=== PATIENT | female | born 1955 | race Caucasian/White ===

== ENCOUNTER → 2018-01-24 | Outpatient (CLI) | payer OTHER ==
[~2018-01-24] MED LIST: ACIDOPHILUS1 EAC4 PO; ALLEGRA ALLERG180 MG PO; CIPRO500 MG PO; ESTRADIOL 1 MG T1 M1 PO; FLAGYL500 MG PO; LASIX 40 MG TAB40 M1 PO; MOBIC15 MG PO; OMEPRAZOLE40 MG PO; TIROSINT50 MCG PO; TRANSDERM-SCOP1 EACH TRANSDERM; TYLENOL325 MG PO; XANAX 0.5 MG0.5 MG PO; ZIAC 5-6.25 MG1 EACH PO
== END ==
LOC: M.RAD 16:51
DX: M47.892 Other spondylosis, cervical region (principal); M25.512 Pain in left shoulder; G89.29 Other chronic pain

== ENCOUNTER 2018-06-04 08:22 | Inpatient (IN) | payer OTHER, MEDICARE ==
[~2018-06-04] VITALS: Ht 172.7 cm; Wt 74.3 kg
[2018-06-04 08:29] VITALS: BP 134/73
[2018-06-04 08:55] LABS: ABSOLUTE BASOPHILS 0.1 thou/uL (0.0-0.2); ABSOLUTE EOSINOPHILS 0.3 thou/uL (0.0-0.7); ABSOLUTE LYMPHOCYTES 1.9 thou/uL (0.8-5.3); ABSOLUTE MONOCYTES 0.8 thou/uL (0.0-1.2); ABSOLUTE NEUTROPHILS 6.9 thou/uL (1.6-8.1); BASOPHILS 0.6 %; EOSINOPHILS 2.7 %; HEMATOCRIT 36.8 % (37.0-47.0); HEMOGLOBIN 12.5 gm/dL (12.0-15.0); LYMPHOCYTES 18.7 %; MCH 30.3 pg (26.0-34.0); MCHC 33.9 g/dL (28.0-37.0); MCV 89.4 fL (80.0-100.0); MONOCYTES 8.4 %; MPV 7.9 fl. (7.2-11.1); NUCLEATED RBCS 0 /100WBC; PLATELET COUNT* 336 thou/uL (150-400); POLYS 69.6 %; RBC 4.12 mil/uL (4.20-5.00); RDW-CV 13.2 % (10.5-14.5)
[2018-06-04 09:00] LABS: URINE BLOOD 2+ (Negative); URINE CLARITY CLEAR; URINE COLOR YELLOW; URINE GLUCOSE-RANDOM NEGATIVE (Negative); URINE KETONES TRACE (Negative); URINE LEUKOCYTES-REFLEX TRACE (Negative); URINE NITRITE-REFLEX NEGATIVE (Negative); URINE PROTEIN 2+ (Negative); URINE SPECIFIC GRAVITY 1.025 (1.005-1.030)
[2018-06-04 09:06] LABS: ANION GAP 7 mmol/L (7-16); BUN 10 mg/dL (7-18); CALCIUM 8.3 mg/dL (8.5-10.1); CHLORIDE 99 mmol/L (98-107); CO2 30 mmol/L (21-32); CREATININE 1.2 mg/dL (0.6-1.3); GLUCOSE 110 mg/dL (70-99); SODIUM 136 mmol/L (136-145)
[2018-06-04 09:14] LABS: ICTOTEST (BILI CONFIRMATORY) Negative (Negative); URINE BILIRUBIN 1+ (Negative)
[2018-06-04 09:15] LABS: CASTS None Seen /LPF (None Seen); CRYSTALS None Seen /LPF (None Seen); SQUAMOUS >10 Many /LPF (0-3); URINE WBC-REFLEX 0-5 Rare /HPF (0-5)
[2018-06-04 09:16] LABS: BACTERIA-REFLEX 1-9 Few /HPF (None Seen); URINE RBC None Seen /HPF (0-2)
[2018-06-04 09:18] LABS: ALBUMIN 2.9 g/dL (3.4-5.0); ALKALINE PHOSPHATASE 90 U/L (46-116); LIPASE 83 U/L (73-393); SGOT 16 U/L (15-37); SGPT 22 U/L (30-65); TOTAL BILIRUBIN 0.2 mg/dL (<0.1-1.0); TOTAL PROTEIN 6.9 g/dL (6.4-8.2); TROPONIN-I LEVEL <0.06 ng/mL (<0.06)
[2018-06-04] MEDS ORDERED: TIROSINT50 MCG PO (09:21)
[2018-06-04] MEDS ORDERED: ZIAC 5-6.25 MG1 EACH PO (09:21)
[2018-06-04] MEDS ORDERED: ESTRADIOL 1 MG T1 M1 PO (09:21)
[2018-06-04 11:33] VITALS: BP 128/66
[2018-06-04 11:45] VITALS: BP 131/66
[2018-06-04] MEDS ORDERED: MOBIC15 MG PO (13:29)
[2018-06-04] MEDS ORDERED: OMEPRAZOLE40 MG PO (13:30)
[2018-06-04] MEDS ORDERED: XANAX 0.5 MG0.5 MG PO (13:32)
[2018-06-04] MEDS ORDERED: ALLEGRA ALLERG180 MG PO (13:32)
[2018-06-04] MEDS ORDERED: TYLENOL325 MG PO (13:33)
--- NOTE | 2018-06-04 14:55 | 2DMMODE ---
[place] [address] 2 D/M-MODE ECHOCARDIOGRAM Name: BOAZ JIMÉNEZ Room: [address] [place] .R.#: [id number] Admission: 06/04/18 Attend Phys: Kathi Lopez, Discharge: Date of : 51 Date of Service: 06/04/18 1455 Report #: [id number] THIS REPORT FOR: //name// APPROVED REPORT Study performed: 06/04/2018 13:37:52 EXAM: Comprehensive 2D, Doppler, and color-flow Echocardiogram Patient Location: Bedside BSA: 1.13 HR: 77 bpm BP: 128/66 mmHg Other Information Study Quality: Good Indications Chest Pain 2D Dimensions LVEF(%): 74.17 (>50%) IVSd: 9.48 (7-11mm) LVOT Diam: 18.49 (18-24mm) LVDd: 39.08 mm PWd: 8.37 (7-11mm) Ascending Ao: 26.38 (22-36mm) LVDs: 22.48 (25-40mm) Aortic Root: 21.51 mm Abrams's LVEF: 74.17 % Volumes Left Atrial Volume (Systole) LA ESV Index: 29.30 mL/m2 Aortic Valve AoV Peak Rigoberto.: 1.48 m/s AO Peak Gr.: 8.75 mmHg LVOT Max P.17 mmHg AO Mean Gr.: 4.95 mmHg LVOT Mean P.93 mmHg LVOT Max V: 1.24 m/s AO V2 VTI: 29.52 cm LVOT Mean V: 0.79 m/s KANNAN (VTI): 2.22 cm2 LVOT V1 VTI: 24.45 cm Mitral Valve E/A Ratio: 1.16 MV Decel. Time: 213.41 ms MV E Max Rigoberto.: 1.06 m/[place] [address] 2 D/M-MODE ECHOCARDIOGRAM Name: BOAZ JIMÉNEZ Room: [address] IN [facility]#: [id number] Admission: 06/04/18 Attend Phys: Kathi Lopez, Discharge: Date of : 51 Date of Service: 06/04/18 1455 Report #: [id number] MV PHT: 61.89 ms MVA (PHT): 3.55 cm2 TDI E/Lateral E': 7.57 E/Medial E': 8.15 Medial E' Rigoberto.: 0.13 m/s Lateral E' Rigoberto.: 0.14 m/s Pulmonary Valve PV Peak Rigoberto.: 1.28 m/s PV Peak Gr.: 6.57 mmHg Tricuspid Valve RAP Estimate: 5.00 mmHg TR Peak Gr.: 20.52 mmHg RVSP: 25.52 mmHg PA Pressure: 25.52 mmHg Left Ventricle The left ventricle is normal size. There is normal LV segmental wall motion. There is normal left ventricular wall thickness. Left ventricular systolic function is normal. The left ventricular ejection fraction is within the normal range. LVEF is 60-65%. The left ventricular diastolic function is normal. Right Ventricle The right ventricle is normal size. The right ventricular systolic function is normal. Atria Left atrium is mildly dilated. The right atrium size is normal. Aortic Valve The aortic valve is normal in structure. No aortic regurgitation is present. There is no aortic valvular stenosis. Mitral Valve The mitral valve is normal in structure. Trace mitral regurgitation. No evidence of mitral valve stenosis. Tricuspid Valve The tricuspid valve is normal in structure. Trace tricuspid regurgitation. estimated pa pressure 30 mm Hg Pulmonic Valve The pulmonary valve is normal in structure. There is no pulmonic [place] [address] 2 D/M-MODE ECHOCARDIOGRAM Name: BOAZ JIMÉNEZ Bliare Room: [address] [place] .#: [id number] Admission: 06/04/18 Attend Phys: Kathi Lopez, Discharge: Date of : 51 Date of Service: 06/04/18 1455 Report #: [id number] Great Vessels The aortic root is normal in size. IVC is normal in size and collapses with >50% inspiration Pericardium There is no pericardial effusion. <Conclusion> Left ventricular systolic function is normal. The left ventricular ejection fraction is within the normal range. Left atrium is mildly dilated. <ELECTRONICALLY SIGNED> By: Festus Chase MD, FACC 06/04/18 1455 1455 1455 Festus Chase MD, FACC /INF
--- NOTE | 2018-06-04 15:24 | EKG ---
[place] [address] ELECTROCARDIOGRAM REPORT Name: BOAZ JIMÉNEZ Room: [address] IN [facility]#: [id number] Admission: 06/04/18 Attend Phys: Kathi Lopez MD Discharge: Date of : 51 Report #: [id number] THIS REPORT FOR: //name// [facility] ED Test Date: 2018-06-04 Test Time: 08:47:23 Pat Name: BOAZ JIMÉNEZ Department: Room: Gender: F Boilermaker Mechanic: Jeremias EDWARDS : 1955 Requested By: Jovani Newsome Order Number: [id number] MD: Festus Chase Measurements Intervals [place] Rate: 71 P: 72 AL: 150 QRS: 42 QRSD: 140 T: -8 QT: 422 QTc: 459 Interpretive Statements Sinus rhythm Right bundle branch block No previous ECG available for comparison Electronically Signed On 06-04-2018 15:24:32 CDT by Festus Chase [email or web address] <ELECTRONICALLY SIGNED> By: Festus Chase MD, [facility] 06/04/18 1524 D: 07/846 0847 Festus Chase MD, FACC /EPI
[2018-06-04 17:07] VITALS: BP 125/66
--- NOTE | 2018-06-04 19:37 | NUR ---
PT. ARRIVED TO ROOM 226, AMBULATED TO BED STEADY ON FEET. MONITOR PLACED TRACING SR. PT. A/OX4, VSS, ON RA @ 96%. FULL ASSESSMENT AND ADMISSION PROCESS COMPLETED, REFER TO CHARTING. PT. STATES SHE HAS HAD LOOSE STOOLS SINCE SHE BEGAN TAKING AMOXICILLIAN POST TOOTH ABSCESS/REMOVAL. CHEST PRESSURE BEGAN TODAY, NO CURRENT ISSUES. PT. ORIENTED TO ROOM, UPCOMING TESTING, AND DISCUSSED NEW MEDICAITONS ORDERED. PT. STABLE THROUGH OUT SHIFT. STOOL SAMPLE SENT PER ORDERS. CONTINUES TO HAVE SMALL LOOSE BM. POOR APPETITE. DID NOT WANT TO EAT DINNER, BUT DID EAT CRACKERS AND JELLO. TREATED WITH TYLENOL FOR DENTAL PAIN PER REQUST. HOURLY ROUNDING COMPLETED THROUGH OUT THE DAY FOR PT. SAFETY.
[2018-06-04 20:00] VITALS: BP 117/72
[2018-06-05] VITALS: BP 105/40
[2018-06-05 04:00] VITALS: BP 98/37
--- NOTE | 2018-06-05 05:07 | NUR ---
ASSUMED CARE OF PT AFTER REPORT AT 1930. PT A&OX4. VITAL SIGNS TAKEN AND RECORDED.PT ON RA WITH 95% O2 SAT. PT TRACING SR BBB ON TELE. PT UP ADLIB TO TOILET. PT STATED STILL HAVING LBM WITH 3-4X AFTER DINNER. PT C/O OF TEETH PAIN WITH PAIN SCALE OF 4/10- TREATED WITH PAIN MED PER JAN WITH PARTIAL RELIEF. PT BP 92/38 AND TEMP 101.1- DR BARNARD INFORMED WITH NO NEW ORDERS. POTASSIUM 3.0-INITIATED ELECTROLYTE PROTOCOL. HOURLY ROUNDING OBSERVED.HS REST & SAFETY GOALS ACHIEVED. CALL LIGHT WITHIN REACH. BED IN LOW POSITION.
[2018-06-05 05:08] LABS: HEMATOCRIT 31.3 % (37.0-47.0); MCH 30.2 pg (26.0-34.0); MCHC 33.3 g/dL (28.0-37.0); MCV 90.8 fL (80.0-100.0); MPV 8.1 fl. (7.2-11.1); RBC 3.45 mil/uL (4.20-5.00); RDW-CV 13.4 % (10.5-14.5); WBC 8.4 thou/uL (4.0-11.0)
[2018-06-05 05:25] LABS: HEMOGLOBIN 10.4 gm/dL (12.0-15.0)
[2018-06-05 05:37] LABS: CALCIUM 7.4 mg/dL (8.5-10.1)
[2018-06-05 05:41] LABS: POTASSIUM 4.5 mmol/L (3.5-5.1)
[2018-06-05 08:00] VITALS: BP 91/46
--- NOTE | 2018-06-05 08:52 | NUR ---
ASSESSMENT COMPLETED REFER TO COMPUTER CHARTING. AIRLINE MANAGER TRACKING SR. PATIENT REPORTING NO NAUSEA OR SHORTNESS OF BREATH. PATIENT REPORTING PAIN IN MOUTH, ORAL PAIN MEDICATION GIVEN PER EMAR. BED IN LOW AND LOCKED POSITION. CALL LIGHT WITHIN REACH. IV FLUIDS INFUSING. ON ROOM AIR. WILL CONTINUE TO MONTIOR THIS SHIFT.
--- NOTE | 2018-06-05 11:11 | NUR ---
SW met with pt to complete initial assessment, introduce self, and SW role. Pt alert and oriented. Pt was not happy about needing to have more blood drawn for another lab test. Pt lives alone and has a dtr Velma as a contact. Pt anticipating possibly needing support/assistance in home at dc. SW to continue to follow to assist with safe dc planning.
[2018-06-05 12:25] VITALS: BP 102/55
[2018-06-05 16:36] VITALS: BP 125/78
[2018-06-05 20:00] VITALS: BP 149/69
[2018-06-06] VITALS: BP 105/46
[2018-06-06 04:00] VITALS: BP 119/61
--- NOTE | 2018-06-06 04:57 | NUR ---
ASSUMED CARE OF PT AFTER REPORT AT 1930. PT A&OX4. VITAL SIGNS TAKEN AND RECORDED. PHYSICAL ASSESSMENT COMPLETED AND CHARTED. PT ON RA WITH 98% O2 SAT. PT TRACING SR BBB ON TELE. PT UP ADLIB. PT C/O OF LOWER ABDOMINAL PAIN WITH PAIN SCALE OF 5/10-PAIN MEDS GIVEN PER JAN. PT TEMP 100.3 AT START OF SHIFT WENT DOWN TO 99.7-WILL CONT TO MONITOR. PT STATED SHE HAD DIARHHEA 4X THIS AM-LOMOTIL GIVEN PER JAN. NOTED LOOSE STOOL WITH TRACE OF BLOOD.PT STATED SHE HAS HEMORRHOIDS.PT RESTED WELL ON BED. HOURLY ROUNDING OBSERVED. REST & SAFETY GOALS ACHIEVED. CALL LIGHT WITHIN REACH.
[2018-06-06 08:00] VITALS: BP 140/69
--- NOTE | 2018-06-06 08:18 | NUR ---
GAVE PT 650 MG PO OF TYLENOL AND SENT DR COTTRELL A YOU CALL MESSAGE.
[2018-06-06 12:27] VITALS: BP 102/49
--- NOTE | 2018-06-06 16:52 | NUR ---
PT HAS RESTED IN HER ROOM. SHE HAS HAD LOOSE STOOLS X2. PT STATES SHE HAS NOT HAD AN APPETITE. SHE HAS HAD NO S OR SX OF ADVERSE REACTION TO ABT. EDUCATION GIVEN ON DEMAND. HOURLY ROUNDING COMPLETE.
[2018-06-06 17:34] VITALS: BP 113/51
[2018-06-06 20:00] VITALS: BP 119/49
[2018-06-07] VITALS: BP 97/46
[2018-06-07 03:52] LABS: MCHC 33.3 g/dL (28.0-37.0); MCV 89.9 fL (80.0-100.0); RBC 3.34 mil/uL (4.20-5.00); RDW-CV 13.2 % (10.5-14.5); WBC 11.3 thou/uL (4.0-11.0)
[2018-06-07 04:01] LABS: CALCIUM 6.8 mg/dL (8.5-10.1); CREATININE 0.9 mg/dL (0.6-1.3); MAGNESIUM 1.8 mg/dL (1.8-2.4)
[2018-06-07 04:23] LABS: POTASSIUM 2.9 mmol/L (3.5-5.1)
--- NOTE | 2018-06-07 04:38 | NUR ---
PATIENT'S POTASSIUM 2.9 THIS AM. TWO PO K GIVEN THIS AM
--- NOTE | 2018-06-07 06:46 | NUR ---
PATIENT RESTING MOST OF THE NIGHT. STILL HAVING DIARRHEA, COMPLAINT PAIN, REQUESTED TYLENOL. UP AD GORGE. CONT. IVF. FEVER DOWN. WILL CONT. WITH CURRENT PLAN OF CARE.
[2018-06-07 08:00] VITALS: BP 92/40
--- NOTE | 2018-06-07 10:01 | NUR ---
ASSESSMENT COMPLETED REFER TO COMPUTER CHARTING. PATIENT MED/ SURG STATUS. BED IN LOW AND LOCKED POSITION. CALL LIGHT WITHIN REACH. PATIENT REPORTING NO PAIN, NAUSEA OR SHORTNESS OF BREATH AT THIS TIME. IV FLUIDS INFUSING. PATIENT ON ROOM AIR. UP SELF IN ROOM. WILL CONTINUE TO MONITOR THIS SHIFT.
[2018-06-07 15:24] LABS: CREATININE 0.9 mg/dL (0.6-1.3); POTASSIUM 3.5 mmol/L (3.5-5.1)
[2018-06-07 16:00] VITALS: BP 139/57
[2018-06-08] VITALS: BP 96/60
[2018-06-08 04:09] LABS: HEMATOCRIT 28.6 % (37.0-47.0); HEMOGLOBIN 9.5 gm/dL (12.0-15.0); MCH 29.9 pg (26.0-34.0); MCHC 33.1 g/dL (28.0-37.0); MCV 90.4 fL (80.0-100.0); MPV 7.8 fl. (7.2-11.1); RBC 3.16 mil/uL (4.20-5.00); RDW-CV 13.9 % (10.5-14.5); WBC 12.3 thou/uL (4.0-11.0)
[2018-06-08 04:25] LABS: CALCIUM 7.3 mg/dL (8.5-10.1); CREATININE 0.8 mg/dL (0.6-1.3); MAGNESIUM 2.1 mg/dL (1.8-2.4); POTASSIUM 3.5 mmol/L (3.5-5.1)
[2018-06-08 08:00] VITALS: BP 136/65
--- NOTE | 2018-06-08 10:03 | NUR ---
ASSUMED RESPONSIBILITY OF PT THIS AM PT IS ALERT AND ORIENTED, SLIGHTLY FRUSTRATED THIS AM AND JUST 'DOESN'T FEEL GOOD' COMPLAINS OF NAUSEA AND DIARRHEA MEDS GIVEN ACCORDINGLY TOOTH PAIN AT TIMES WELL WITH TYLENOL THAT HELPS PUT 2L NC ON FOR 02 SATS LOWER AND PT STATED 'I BREATHE A LITTLE EASIER THANK YOU' PT IS UP AD GORGE ROCEPHIN STARTED AND SOCOLAPINE PATCH WELL ELECTROLYTE FLUIDS AT 125/H
[2018-06-08 16:23] VITALS: BP 111/48
--- NOTE | 2018-06-08 18:25 | NUR ---
PT STARTED TO COMPLAIN OF NAUSEA AGAIN SO ATIVAN ORDERED WHICH IS STARTING TO HELP PER PT PT RESTING IN BED PPN CONTINUES AT 125/H CALL LIGHT IN REACH
[2018-06-08 20:00] VITALS: BP 135/60
[2018-06-09 04:00] VITALS: BP 126/52
--- NOTE | 2018-06-09 05:44 | NUR ---
ASSUMED CARE OF PATIENT AT 0040. ALERT AND ORIENTED X 4. VITALS STABLE ON 3L OF OXYGEN. NO BOWEL MOVMENTS OVER NIGHT. REPORTS NEW NONPRODUCTIVE COUGH. PPN INFUSING PER ORDER. UP INDEPENDENTLY. MED SURG STATUS, NOT ON CRANE ENGINEER. HOURLY ROUNDS. NURSING WILL CONTINUE TO MONITOR.
[2018-06-09 08:00] VITALS: BP 117/53
--- NOTE | 2018-06-09 09:00 | NUR ---
DISCUSSED PT COUGH AND HAVING TO WEAR O2 @ 3L NC MAINTAIN SATS IN 90S. NO NEW ORDERS AT THIS TIME
--- NOTE | 2018-06-09 11:15 | NUR ---
REPORT CALLED TO DARRIUS MONTANEZ ON JSSI
[2018-06-09 16:00] VITALS: BP 120/84
--- NOTE | 2018-06-09 17:24 | NUR ---
ASSUMED CARE OF PATIENT THIS AFTERNOON. REPORT RECEIVED FROM EDELMIRA. PATIENT HAD COMPLAINTS OF SINUS PAIN THIS AFTERNOON, HUMIDITY ADDED TO OXYGEN AND TYLENOL GIVEN WITH RELIEF. PATIENT O2 SATS FALL TO MID 80'S ON ROOM AIR, INCENTIVE SPIROMETER GIVEN. PATIENT IS UP AD GORGE IN ROOM. PATIENT DENIES ANY NEEDS AT THIS TIME. CALL LIGHT WITHIN REACH. WILL CONTINUE TO MONITOR.
[2018-06-09 20:00] VITALS: BP 119/56
[2018-06-10 04:03] LABS: HEMATOCRIT 29.4 % (37.0-47.0); MCH 30.9 pg (26.0-34.0); MCHC 34.2 g/dL (28.0-37.0); MCV 90.5 fL (80.0-100.0); MPV 8.1 fl. (7.2-11.1); RBC 3.25 mil/uL (4.20-5.00); RDW-CV 13.8 % (10.5-14.5); WBC 9.7 thou/uL (4.0-11.0)
[2018-06-10 04:18] LABS: CALCIUM 7.7 mg/dL (8.5-10.1); CREATININE 0.8 mg/dL (0.6-1.3)
--- NOTE | 2018-06-10 04:40 | NUR ---
PATIENT HAS REMAINED ALERT AND ORIENTED X 4 THROUGHOUT THE SHIFT AND RESTING QUIETLY ON HOURLY ROUNDS. REMAINS ON 3L/MIN O2 OVERNIGHT WITH VITAL SIGNS STABLE AND MID-90'S O2 SATURATION. PATIENT ACTIVELY USING INCENTIVE SPIROMETER Q2H. ONE LOOSE BM. LOMOTIL PROVIDED X 1. ANTIBIOTIC PER ORDERS. PATIENT REPORTING SLOW IMPROVEMENT. CONTINUE TO MONITOR.
[2018-06-10 08:15] VITALS: BP 119/61
[2018-06-10 16:10] VITALS: BP 122/48
--- NOTE | 2018-06-10 16:45 | NUR ---
PATIENT REMAINS ALERT AND ORIENTED. DENIES PAIN. IV ABX INFUSED ORDERED. PATIENT TOLERATING SMALL AMOUNTS OF MEALS- DOES NOT LIKE THE HOSPITAL FOOD. AMBULATES AD GORGE. IMMODIUM X1. A FEW LOOSE STOOLS THIS SHIFT. VOIDING FREQUENTLY AFTER LASIX THIS AM. DENIES FURTHER NEEDS. CALL LIGHT WITHIN REACH. WILL CONTINUE TO MONITOR.
[2018-06-10 21:45] VITALS: BP 139/68
--- NOTE | 2018-06-11 04:34 | NUR ---
PATIENT HAS REMAINED ALERT AND ORIENTED X 4 THROUGHOUT THE SHIFT AND RESTING QUIETLY ON HOURLY ROUNDS. NO STOOLS THIS SHIFT. DENIES PAIN AND NAUSEA. STATED SHE HAD BETTER INTAKE YESTERDAY AND SLOWLY FEELING BETTER. SHIFT ASSSESSMENT WITH CONTINUED CRACKLES BILAT LUNG BASES BUT LESS AND WITH MORE AIR MOVING. O2 SAT 94% ON ROOM AIR. MEDS/ANTIBIOTICS PER ORDERS. VITAL SIGNS STABLE. CONTINUE TO MONITOR.
--- NOTE | 2018-06-11 06:22 | NUR ---
IV SITE LEFT FOREARM TENDER/INFILTRATED: REMOVED. ICE PACK APPLIED FOR COMFORT. PATIENT TEARFUL WITH TAPE REMOVAL AND IS VERY RELUCTANT FOR IV REPLACEMENT. WILL NOTIFY PHYSICIAN.
[2018-06-11 08:30] VITALS: BP 146/59
--- NOTE | 2018-06-11 14:52 | NUR ---
Nutrition: Pt seen for LOS. Admitted with colitis. Low fiber diet. Pt stated she usually weighs 148#, today's wt 150#. She stated she is eating more today, even though she still has some nausea and diarrhea. Diarrhea seems to be resolving, per pt. ABX caused a weird taste in mouth, per pt, and so she has not been liking the food. Discussed menu/alternative ordering. PMHx, labs, RX noted. Pt asked about a home diet. Food and nutrition-relate dknowledge deficit R/T low fiber diet AEB pt request for info. Discussion on low fiber diet, colitis, fiber sources, tips. Pt stated understanding and had no further questions. Encouraged her to call RD if further concerns. Low risk.
[2018-06-11 16:00] VITALS: BP 154/63
--- NOTE | 2018-06-11 16:23 | NUR ---
PATIENT REMAINS ALERT AND ORIENTED. NO IV ACCESS. TOLERATED PO CIPRO. IMMODIUM X1- 2 LOOSE STOOLS THIS AM. AMBULATES AD GORGE. TOLERATING MEALS. O2 AT 2L. SOB WITH EXERTION. LASIX 40MG PO BID TODAY. CALL LIGHT WITHIN REACH. WILL CONTINUE TO MONITOR.
[2018-06-11 20:30] VITALS: BP 133/61
--- NOTE | 2018-06-12 07:27 | NUR ---
PATIENT HAS REMAINED ALERT AND ORIENTED X 4 THROUGHOUT THE SHIFT AND RESTING QUIETLY ON HOURLY ROUNDS. PATIENT REPORTING SLOW IMPROVEMENT IN BREATHING. O2 AT 1.5 L/MIN OVERNIGHT. NO BM'S THIS SHIFT. VITAL SIGNS STABLE. CONTINUE TO MONITOR.
[2018-06-12 08:08] VITALS: BP 117/66
[2018-06-12] MEDS ORDERED: FLAGYL500 MG PO (09:04)
[2018-06-12] MEDS ORDERED: ACIDOPHILUS1 EAC4 PO (09:04)
[2018-06-12] MEDS ORDERED: LASIX 40 MG TAB40 M1 PO (09:04)
[2018-06-12] MEDS ORDERED: CIPRO500 MG PO (09:04)
[2018-06-12] MEDS ORDERED: TRANSDERM-SCOP1 EACH TRANSDERM (09:04)
[2018-06-12 10:42] VITALS: BP 117/66
--- NOTE | 2018-06-12 13:33 | NUR ---
PATIENT DISCHARGING TO HOME AT THIS TIME. SCRIPTS GIVEN. PATIENT VERBALIZES UNDERSTANDING OF DC INSTRUCTIONS. SON WILL TRANSPORT PATIENT HOME.
== END 2018-06-12 13:33 | disposition home or self-care (01) | DRG 371 ==
LOC: M.ERS 08:22 → M.TBA-ER 10:33 → M.2W 10:33 → M.ORTHSURG 06-09 12:00
PROVIDERS: Emergency Medicine Emergency Medical Services; ADMIT Internal Medicine
DX: A04.9 Bacterial intestinal infection, unspecified (principal); J96.01 Acute respiratory failure with hypoxia; E44.1 Mild protein-calorie malnutrition; N17.9 Acute kidney failure, unspecified; J90 Pleural effusion, not elsewhere classified; K04.7 Periapical abscess without sinus; I25.10 Atherosclerotic heart disease of native coronary artery without angina pectoris; E03.9 Hypothyroidism, unspecified; E87.70 Fluid overload, unspecified; R50.9 Fever, unspecified; R07.9 Chest pain, unspecified; Z79.2 Long term (current) use of antibiotics; Z79.82 Long term (current) use of aspirin; Z79.899 Other long term (current) drug therapy; Z68.24 Body mass index [BMI] 24.0-24.9, adult; Z88.8 Allergy status to other drugs, medicaments and biological substances; Z88.6 Allergy status to analgesic agent; Z91.041 Radiographic dye allergy status